=== PATIENT | male | born 1985 | race Caucasian/White ===

== ENCOUNTER 2017-12-26 12:59 | Emergency (ER) | payer OTHER ==
[~2017-12-26] VITALS: Ht 175.3 cm; Wt 81.2 kg
== END 2017-12-26 16:37 | disposition home or self-care (01) ==
LOC: ER 12:59
DX: N50.89 Other specified disorders of the male genital organs (principal); A63.8 Other specified predominantly sexually transmitted diseases

== ENCOUNTER 2022-12-28 11:31 | Emergency (ER) | payer OTHER ==
[~2022-12-28] VITALS: Ht 175.3 cm; Wt 83.9 kg
== END 2022-12-28 15:39 | disposition home or self-care (01) ==
LOC: ER 11:31
DX: B34.8 Other viral infections of unspecified site (principal); Z20.822 Contact with and (suspected) exposure to COVID-19